=== PATIENT | male | born 1980 | race Caucasian/White ===

== ENCOUNTER 2017-02-03 17:49 | Emergency (ER) | payer BC ==
[~2017-02-03] VITALS: Ht 185.4 cm; Wt 95.3 kg
[~2017-02-03 17:49] MED LIST: 'zithromax250 MG PO; ANAPROX DS550 MG PO; CARAFATE1 G1 PO; CLINDAMYCIN HC300 MG PO; CYCLOBENZAPRINE10 MG PO; FLEXERIL10 MG PO; HYDROCODONE BIT1 T11 PO; IBU800 MG PO; LEVOFLOXACIN500 MG PO; LOMOTIL 0.025 M1 TA1 PO; MOTRIN800 MG PO; Motrin,Rufen800 MG PO; NAPROSYN500 MG PO; NKHM; NORCO 325 MG-51 TAB PO; NORCO 5-325 TA1 EACH PO; NORFLEX100 MG PO; PARAFON FORTE500 MG PO; PHENERGAN25 M1 PO; PREDNICOT20 MG PO; PREDNISONE10 MG PO; PRILOSEC20 M1 PO; PROTONIX40 MG PO; VICODIN 5/500 505 MG PO; ZITHROMAX Z PA250 MG PO; ZOFRAN ODT4 MG SL
[2017-02-03] MEDS ORDERED: CYCLOBENZAPRINE5 M3 PO (22:41)
[2017-02-03] MEDS ORDERED: ZITHROMAX250 MG PO (22:41)
[2017-02-03] MEDS ORDERED: Fioricet 325 MG1 TAB PO (22:41)
== END 2017-02-03 18:27 | disposition home or self-care (01) ==
LOC: ED 17:49
DX: H92.02 Otalgia, left ear (principal); R51 Headache; F17.200 Nicotine dependence, unspecified, uncomplicated; Z88.0 Allergy status to penicillin; Z88.1 Allergy status to other antibiotic agents

== ENCOUNTER 2017-03-09 23:17 | Emergency (ER) | payer BC ==
[~2017-03-09] VITALS: Wt 99.8 kg
[~2017-03-09 23:17] MED LIST changes: +CYCLOBENZAPRINE5 M3 PO; +Fioricet 325 MG1 TAB PO; +ZITHROMAX250 MG PO
[2017-03-09] MEDS ORDERED: OMNICEF300 MG PO (23:38)
== END 2017-03-10 00:09 | disposition home or self-care (01) ==
LOC: ED 23:17
DX: H66.006 Acute suppurative otitis media without spontaneous rupture of ear drum, recurrent, bilateral (principal); J02.9 Acute pharyngitis, unspecified; F17.200 Nicotine dependence, unspecified, uncomplicated; Z88.0 Allergy status to penicillin; Z88.1 Allergy status to other antibiotic agents

== ENCOUNTER 2017-03-28 14:53 | Emergency (ER) | payer BC ==
[~2017-03-28] VITALS: Ht 185.4 cm; Wt 100.7 kg
[~2017-03-28 14:53] MED LIST changes: +OMNICEF300 MG PO
[2017-03-28] MEDS ORDERED: NAPROSYN500 MG PO (18:57)
[2017-03-28] MEDS ORDERED: MEDROL DOSEPAK4 MG PO (18:57)
[2017-03-28] MEDS ORDERED: CYCLOBENZAPRINE10 MG PO (18:57)
== END 2017-03-28 19:04 | disposition home or self-care (01) ==
LOC: ED 14:53
DX: S29.012A Strain of muscle and tendon of back wall of thorax, initial encounter (principal); F17.200 Nicotine dependence, unspecified, uncomplicated; Z88.0 Allergy status to penicillin; Z88.1 Allergy status to other antibiotic agents; X50.9XXA Other and unspecified overexertion or strenuous movements or postures, initial encounter; Y93.89 Activity, other specified; Y92.9 Unspecified place or not applicable; Y99.9 Unspecified external cause status

== ENCOUNTER 2017-06-28 22:57 | Emergency (ER) | payer BC ==
[~2017-06-28] VITALS: Ht 185.4 cm; Wt 100.7 kg
[~2017-06-28 22:57] MED LIST changes: +MEDROL DOSEPAK4 MG PO
[2017-06-29] MEDS ORDERED: NORCO 5-325 TA1 EACH PO (01:15)
[2017-06-29] MEDS ORDERED: MEDROL DOSEPAK4 MG PO (01:15)
[2017-06-29] MEDS ORDERED: CYCLOBENZAPRINE5 M3 PO (01:15)
== END 2017-06-29 01:40 | disposition home or self-care (01) ==
LOC: ED 22:57
DX: M54.16 Radiculopathy, lumbar region (principal); F17.200 Nicotine dependence, unspecified, uncomplicated; Z88.0 Allergy status to penicillin; Z88.1 Allergy status to other antibiotic agents

== ENCOUNTER 2017-07-18 06:59 | Emergency (ER) | payer BC ==
[~2017-07-18] VITALS: Ht 185.4 cm; Wt 100.7 kg
[2017-07-18 07:41] LABS: BASO # 0.1 10*3/uL (0.0-0.1); BASO % 0.6 % (0.0-1.0); EOS # 0.6 10*3/uL (0.0-0.4); EOS % 5.2 % (1.0-4.0); HEMATOCRIT 45.5 % (42.0-52.0); HEMOGLOBIN 15.8 g/dl (14.0-18.0); LYMPH % 17.9 % (27.0-41.0); MEAN CELL VOLUME 83.5 fl (80.0-94.0); MEAN CORPUSCULAR HGB CONC 34.7 g/dl (33.0-37.0); MEAN PLATELET VOLUME 8.9 fl (9.6-12.3); MONO # 1.1 10*3/uL (0.1-1.0); MONO % 9.9 % (3.0-9.0); NEUT # 7.3 10*3/uL (2.3-7.9); NEUT % 66.1 % (47.0-73.0); PLATELET COUNT AUTOMATED 259 10*3/uL (130-400); RED BLOOD COUNT 5.45 10*6/uL (4.50-5.90); RED CELL DISTRI WIDTH 12.1 % (0-14.5)
[2017-07-18 07:42] LABS: BILIRUBIN NEGATIVE (NEGATIVE); BLOOD 1+ (NEGATIVE); CLARITY CLEAR (CLEAR); COLOR YELLOW (YELLOW); GLUCOSE NEGATIVE (NEGATIVE); KETONE NEGATIVE (NEGATIVE); LEUKO ESTERASE NEGATIVE (NEGATIVE); NITRITE NEGATIVE (NEGATIVE); PH 6.5 (5.0-9.0)
[2017-07-18 07:49] LABS: BACTERIA TRACE; WBC 0-2 wbc/hpf (0-5)
[2017-07-18 07:57] LABS: ALBUMIN 3.6 gm/dl (3.1-4.5); ALKALINE PHOSPHATASE 79 U/L (45-117); BUN 16 mg/dl (7-24); CHLORIDE 109 mmol/L (98-107); CREATININE 1.08 mg/dL (0.70-1.30); LIPASE 158 U/L (73-393); POTASSIUM 3.8 mmol/L (3.5-5.1); SGOT/AST 15 IU/L (3-35); SGPT/ALT 30 U/L (12-78); SODIUM 140 mmol/L (136-145)
[2017-07-18] MEDS ORDERED: ZOFRAN ODT4 MG SL (09:12)
[2017-07-18] MEDS ORDERED: PROTONIX40 MG PO (09:12)
== END 2017-07-18 10:54 | disposition home or self-care (01) ==
LOC: ED 06:59
PROVIDERS: Emergency Medicine
DX: K29.00 Acute gastritis without bleeding (principal); R11.2 Nausea with vomiting, unspecified; K21.9 Gastro-esophageal reflux disease without esophagitis; F17.200 Nicotine dependence, unspecified, uncomplicated; Z88.0 Allergy status to penicillin; Z88.1 Allergy status to other antibiotic agents; Z90.49 Acquired absence of other specified parts of digestive tract

== ENCOUNTER 2017-07-29 10:58 | Emergency (ER) | payer BC ==
[~2017-07-29] VITALS: Ht 185.4 cm; Wt 100.7 kg
[2017-07-29] MEDS ORDERED: CYCLOBENZAPRINE5 M3 PO (12:57)
[2017-07-29] MEDS ORDERED: Motrin,Rufen800 MG PO (12:57)
[2017-07-29] MEDS ORDERED: NORCO 5-325 TA1 EACH PO (12:57)
== END 2017-07-29 13:26 | disposition home or self-care (01) ==
LOC: ED 10:58
DX: S46.911A Strain of unspecified muscle, fascia and tendon at shoulder and upper arm level, right arm, initial encounter (principal); F17.200 Nicotine dependence, unspecified, uncomplicated; Z88.1 Allergy status to other antibiotic agents; Z88.0 Allergy status to penicillin; X58.XXXA Exposure to other specified factors, initial encounter; Y93.61 Activity, american tackle football; Y92.89 Other specified places as the place of occurrence of the external cause; Y99.8 Other external cause status

== ENCOUNTER 2017-09-13 07:34 | Emergency (ER) | payer BC ==
[~2017-09-13] VITALS: Ht 185.4 cm; Wt 97.1 kg
[2017-09-13] MEDS ORDERED: IBU800 MG PO (08:56)
== END 2017-09-13 09:17 | disposition home or self-care (01) ==
LOC: ED 07:34
DX: M25.522 Pain in left elbow (principal); F17.200 Nicotine dependence, unspecified, uncomplicated; K21.9 Gastro-esophageal reflux disease without esophagitis; Z88.0 Allergy status to penicillin; Z88.1 Allergy status to other antibiotic agents

== ENCOUNTER 2017-10-10 15:22 | Emergency (ER) | payer BC ==
[~2017-10-10] VITALS: Wt 92.5 kg
[2017-10-10] MEDS ORDERED: BENADRYL ALLERG25 M5 PO (17:00)
[2017-10-10] MEDS ORDERED: MEDROL DOSEPAK4 MG PO (17:00)
[2017-10-10] MEDS ORDERED: PEPCID20 MG PO (17:00)
== END 2017-10-10 17:12 | disposition home or self-care (01) ==
LOC: ED 15:22
DX: T78.40XA Allergy, unspecified, initial encounter (principal); X58.XXXA Exposure to other specified factors, initial encounter; F17.200 Nicotine dependence, unspecified, uncomplicated; F10.10 Alcohol abuse, uncomplicated; Z88.0 Allergy status to penicillin; Z88.1 Allergy status to other antibiotic agents; Z79.899 Other long term (current) drug therapy

== ENCOUNTER 2017-12-22 20:59 | Emergency (ER) | payer BC ==
[~2017-12-22] VITALS: Ht 185.4 cm; Wt 97.1 kg
[~2017-12-22 20:59] MED LIST changes: +BENADRYL ALLERG25 M5 PO; +PEPCID20 MG PO
[2017-12-22 22:09] LABS: BILIRUBIN 1+ (NEGATIVE); BLOOD NEGATIVE (NEGATIVE); CLARITY SL CLOUDY (CLEAR); COLOR YELLOW (YELLOW); GLUCOSE NEGATIVE (NEGATIVE); KETONE TRACE (NEGATIVE); LEUKO ESTERASE NEGATIVE (NEGATIVE); NITRITE NEGATIVE (NEGATIVE); PH 6.5 (5.0-9.0)
[2017-12-22 22:14] LABS: BASO # 0.1 10*3/uL (0.0-0.1); BASO % 0.6 % (0.0-1.0); EOS # 0.6 10*3/uL (0.0-0.4); EOS % 5.5 % (1.0-4.0); HEMATOCRIT 44.1 % (42.0-52.0); LYMPH # 3.1 10*3/uL (1.3-4.4); LYMPH % 29.8 % (27.0-41.0); MEAN CELL VOLUME 84.6 fl (80.0-94.0); MEAN CORPUSCULAR HGB 28.8 pg (27.0-31.0); MEAN PLATELET VOLUME 8.7 fl (9.6-12.3); MONO % 9.8 % (3.0-9.0); NEUT # 5.5 10*3/uL (2.3-7.9); PLATELET COUNT AUTOMATED 258 10*3/uL (130-400); RED BLOOD COUNT 5.21 10*6/uL (4.50-5.90); RED CELL DISTRI WIDTH 12.3 % (0-14.5); WHITE BLOOD COUNT 10.2 10*3/uL (4.8-10.8)
[2017-12-22 22:19] LABS: BACTERIA TRACE
[2017-12-22 22:31] LABS: ALKALINE PHOSPHATASE 63 U/L (45-117); BUN 13 mg/dl (7-24); CHLORIDE 105 mmol/L (98-107); CREATININE 1.09 mg/dL (0.70-1.30); LIPASE 92 U/L (73-393); POTASSIUM 3.9 mmol/L (3.5-5.1); SGOT/AST 15 IU/L (3-35); SGPT/ALT 27 U/L (12-78); SODIUM 140 mmol/L (136-145)
[2017-12-22 22:37] LABS: TROPONIN I < 0.015 ng/ml (<0.045)
[2017-12-22] MEDS ORDERED: ROBAXIN500 M1 PO (23:44)
[2017-12-22] MEDS ORDERED: PEPCID20 MG PO (23:44)
== END 2017-12-23 00:02 | disposition home or self-care (01) ==
LOC: ED 20:59
PROVIDERS: Physician Assistant
DX: K21.9 Gastro-esophageal reflux disease without esophagitis (principal); M54.5 Low back pain; R10.13 Epigastric pain; F17.200 Nicotine dependence, unspecified, uncomplicated; Z79.899 Other long term (current) drug therapy; Z88.0 Allergy status to penicillin; Z88.1 Allergy status to other antibiotic agents

== ENCOUNTER → 2018-01-18 | Outpatient (CLI) | payer BC ==
[~2018-01-18] MED LIST changes: +ROBAXIN500 M1 PO
== END | disposition home or self-care (01) ==
LOC: RAD 16:57
DX: G58.0 Intercostal neuropathy (principal); R06.02 Shortness of breath; R07.9 Chest pain, unspecified; Z87.891 Personal history of nicotine dependence

== ENCOUNTER 2018-03-22 15:03 | Emergency (ER) | payer BC ==
[~2018-03-22] VITALS: Ht 185.4 cm; Wt 95.3 kg
[2018-03-22] MEDS ORDERED: CYCLOBENZAPRINE10 MG PO (15:12)
== END 2018-03-22 16:58 | disposition home or self-care (01) ==
LOC: ED 15:03
DX: R51 Headache (principal); F17.200 Nicotine dependence, unspecified, uncomplicated; Z79.899 Other long term (current) drug therapy; Z88.0 Allergy status to penicillin; Z88.1 Allergy status to other antibiotic agents

== ENCOUNTER 2018-07-31 04:52 | Emergency (ER) | payer BC ==
[~2018-07-31] VITALS: Ht 185.4 cm; Wt 112.5 kg
[2018-07-31 05:30] LABS: BASO # 0.1 10*3/uL (0.0-0.1); BASO % 0.8 % (0.0-1.0); EOS # 0.9 10*3/uL (0.0-0.4); EOS % 8.8 % (1.0-4.0); MEAN CELL VOLUME 84.9 fl (80.0-94.0); MEAN CORPUSCULAR HGB CONC 34.1 g/dl (33.0-37.0); MEAN PLATELET VOLUME 8.6 fl (9.6-12.3); MONO # 1.3 10*3/uL (0.1-1.0); MONO % 12.8 % (3.0-9.0); NEUT % 58.1 % (47.0-73.0); PLATELET COUNT AUTOMATED 252 10*3/uL (130-400); RED BLOOD COUNT 5.18 10*6/uL (4.50-5.90); RED CELL DISTRI WIDTH 12.2 % (0-14.5); WHITE BLOOD COUNT 10.3 10*3/uL (4.8-10.8)
[2018-07-31] MEDS ORDERED: TOBREX OPHTH O3.5 GM T (06:34)
[2018-07-31 07:10] LABS: ALBUMIN 3.5 gm/dl (3.1-4.5); ALKALINE PHOSPHATASE 89 U/L (45-117); BUN 15 mg/dl (7-24); CHLORIDE 108 mmol/L (98-107); POTASSIUM 3.9 mmol/L (3.5-5.1); SGOT/AST 23 IU/L (3-35); SGPT/ALT 49 U/L (12-78); SODIUM 143 mmol/L (136-145); TOTAL PROTEIN 6.8 gm/dL (6.4-8.2)
[2018-07-31] MEDS ORDERED: ZITHROMAX250 MG PO (07:31)
== END 2018-07-31 07:34 | disposition home or self-care (01) ==
LOC: ED 04:52
PROVIDERS: Emergency Medicine
DX: J01.90 Acute sinusitis, unspecified (principal); K21.9 Gastro-esophageal reflux disease without esophagitis; Z88.0 Allergy status to penicillin; Z88.1 Allergy status to other antibiotic agents; Z79.899 Other long term (current) drug therapy

== ENCOUNTER 2018-12-20 09:10 | Emergency (ER) | payer BC ==
[~2018-12-20] VITALS: Ht 185.4 cm; Wt 113.4 kg
[~2018-12-20 09:10] MED LIST changes: +TOBREX OPHTH O3.5 GM T
[2018-12-20] MEDS ORDERED: DOXYCYCLINE100 M3 PO (11:06)
[2018-12-20] MEDS ORDERED: FLONASE ALLERG9.9 ML NAS (11:06)
[2018-12-20] MEDS ORDERED: PREDNISONE50 MG PO (11:06)
[2019-01-10] MEDS ORDERED: ZOFRAN4 MG PO (10:09)
[2019-01-10] MEDS ORDERED: ZITHROMAX250 MG PO (10:09)
[2019-04-01] MEDS ORDERED: MEDROL DOSEPAK4 MG PO (13:36)
[2019-04-01] MEDS ORDERED: OMNICEF300 MG PO (13:36)
[2019-04-01] MEDS ORDERED: FLONASE ALLERG9.9 ML NAS (13:36)
== END 2018-12-20 11:27 | disposition home or self-care (01) ==
LOC: ED 09:10
DX: J01.90 Acute sinusitis, unspecified (principal); Z88.0 Allergy status to penicillin; Z88.1 Allergy status to other antibiotic agents; Z79.899 Other long term (current) drug therapy

== ENCOUNTER 2019-05-17 12:37 | Emergency (ER) | payer BC ==
[~2019-05-17] VITALS: Ht 185.4 cm; Wt 104.3 kg
--- NOTE | ~2019-05-17 | EKG ---
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
[~2019-05-17 12:37] MED LIST changes: +DOXYCYCLINE100 M3 PO; +FLONASE ALLERG9.9 ML NAS; +PREDNISONE50 MG PO; +ZOFRAN4 MG PO
[2019-05-17 14:43] LABS: BASO # 0.1 10*3/uL (0.0-0.1); BASO % 0.4 % (0.0-1.0); EOS # 0.3 10*3/uL (0.0-0.4); EOS % 2.7 % (1.0-4.0); HEMATOCRIT 45.9 % (42.0-52.0); HEMOGLOBIN 15.7 g/dl (14.0-18.0); LYMPH # 2.6 10*3/uL (1.3-4.4); LYMPH % 22.8 % (27.0-41.0); MEAN CELL VOLUME 86.6 fl (80.0-94.0); MEAN CORPUSCULAR HGB 29.6 pg (27.0-31.0); MEAN CORPUSCULAR HGB CONC 34.2 g/dl (33.0-37.0); MEAN PLATELET VOLUME 9.5 fl (9.6-12.3); MONO % 8.8 % (3.0-9.0); NEUT # 7.3 10*3/uL (2.3-7.9); PLATELET COUNT AUTOMATED 266 10*3/uL (130-400); RED CELL DISTRI WIDTH 12.2 % (0-14.5); WHITE BLOOD COUNT 11.2 10*3/uL (4.8-10.8)
[2019-05-17 15:01] LABS: ALBUMIN 3.9 gm/dl (3.1-4.5); ALKALINE PHOSPHATASE 70 U/L (45-117); BUN 14 mg/dl (7-24); CHLORIDE 109 mmol/L (98-107); CREATININE 1.06 mg/dL (0.70-1.30); LIPASE 96 U/L (73-393); POTASSIUM 3.9 mmol/L (3.5-5.1); SGOT/AST 30 IU/L (3-35); SGPT/ALT 46 U/L (12-78); SODIUM 141 mmol/L (136-145); TOTAL PROTEIN 7.2 gm/dL (6.4-8.2)
[2019-05-17 15:18] LABS: TROPONIN I < 0.015 ng/ml (<0.045)
[2019-05-17] MEDS ORDERED: NEXIUM40 MG PO (16:32)
== END 2019-05-17 16:55 | disposition home or self-care (01) ==
LOC: ED 12:37
PROVIDERS: Physician Assistant
DX: K21.9 Gastro-esophageal reflux disease without esophagitis (principal); F17.200 Nicotine dependence, unspecified, uncomplicated; Z88.0 Allergy status to penicillin; Z88.1 Allergy status to other antibiotic agents

== ENCOUNTER 2019-11-20 09:57 | Emergency (ER) | payer BC ==
[~2019-11-20] VITALS: Ht 185.4 cm; Wt 108.0 kg
[~2019-11-20 09:57] MED LIST changes: +NEXIUM40 MG PO
[2019-11-20] MEDS ORDERED: ZYRTEC10 MG PO (10:56)
[2019-11-20] MEDS ORDERED: ZITHROMAX250 MG PO (10:56)
== END 2019-11-20 11:01 | disposition home or self-care (01) ==
LOC: ED 09:57
DX: J02.9 Acute pharyngitis, unspecified (principal); R05 Cough; R09.81 Nasal congestion; R51 Headache; K21.9 Gastro-esophageal reflux disease without esophagitis; Z88.0 Allergy status to penicillin; Z88.1 Allergy status to other antibiotic agents

== ENCOUNTER 2020-04-03 10:31 | Emergency (ER) | payer SELFPAY ==
[~2020-04-03 10:31] MED LIST changes: +ZYRTEC10 MG PO
[2020-04-03 11:45] LABS: BASO # 0.1 10*3/uL (0.0-0.1); BASO % 0.5 % (0.0-1.0); EOS # 0.4 10*3/uL (0.0-0.4); EOS % 2.9 % (1.0-4.0); HEMATOCRIT 47.7 % (42.0-52.0); LYMPH # 2.2 10*3/uL (1.3-4.4); LYMPH % 15.3 % (27.0-41.0); MEAN CELL VOLUME 86.1 fl (80.0-94.0); MEAN CORPUSCULAR HGB 28.7 pg (27.0-31.0); MEAN CORPUSCULAR HGB CONC 33.3 g/dl (33.0-37.0); MONO % 6.8 % (3.0-9.0); NEUT # 10.8 10*3/uL (2.3-7.9); NEUT % 74.1 % (47.0-73.0); PLATELET COUNT AUTOMATED 304 10*3/uL (130-400); RED BLOOD COUNT 5.54 10*6/uL (4.50-5.90); RED CELL DISTRI WIDTH 12.7 % (0-14.5); WHITE BLOOD COUNT 14.6 10*3/uL (4.8-10.8)
[2020-04-03 11:56] LABS: ALBUMIN 3.7 gm/dl (3.1-4.5); ALKALINE PHOSPHATASE 82 U/L (45-117); BUN 17 mg/dl (7-24); CHLORIDE 109 mmol/L (98-107); CREATININE 1.12 mg/dL (0.70-1.30); LIPASE 75 U/L (73-393); POTASSIUM 4.1 mmol/L (3.5-5.1); SGOT/AST 13 IU/L (3-35); SGPT/ALT 33 U/L (12-78); SODIUM 141 mmol/L (136-145)
[2020-04-03] MEDS ORDERED: PEPCID20 MG PO (12:23)
== END 2020-04-03 12:42 | disposition home or self-care (01) ==
LOC: ED 10:31
PROVIDERS: Physician Assistant
DX: K21.9 Gastro-esophageal reflux disease without esophagitis (principal); F32.9 Major depressive disorder, single episode, unspecified; F17.200 Nicotine dependence, unspecified, uncomplicated; Z88.0 Allergy status to penicillin; Z88.8 Allergy status to other drugs, medicaments and biological substances; Z79.899 Other long term (current) drug therapy; Z79.2 Long term (current) use of antibiotics

== ENCOUNTER 2020-04-04 12:47 | Emergency (ER) | payer SELFPAY ==
[~2020-04-04] VITALS: Ht 185.4 cm; Wt 108.9 kg
[2020-04-04 13:42] LABS: BASO # 0.1 10*3/uL (0.0-0.1); BASO % 0.7 % (0.0-1.0); EOS # 0.3 10*3/uL (0.0-0.4); EOS % 2.5 % (1.0-4.0); LYMPH # 2.5 10*3/uL (1.3-4.4); LYMPH % 19.4 % (27.0-41.0); MEAN CORPUSCULAR HGB CONC 33.8 g/dl (33.0-37.0); MONO # 0.9 10*3/uL (0.1-1.0); MONO % 6.8 % (3.0-9.0); NEUT # 9.1 10*3/uL (2.3-7.9); NEUT % 70.1 % (47.0-73.0); PLATELET COUNT AUTOMATED 295 10*3/uL (130-400); RED BLOOD COUNT 5.58 10*6/uL (4.50-5.90); RED CELL DISTRI WIDTH 12.6 % (0-14.5)
[2020-04-04 13:55] LABS: ALBUMIN 3.9 gm/dl (3.1-4.5); ALKALINE PHOSPHATASE 84 U/L (45-117); BUN 16 mg/dl (7-24); CHLORIDE 111 mmol/L (98-107); CREATININE 1.05 mg/dL (0.70-1.30); LIPASE 71 U/L (73-393); POTASSIUM 3.8 mmol/L (3.5-5.1); SGOT/AST 12 IU/L (3-35); SGPT/ALT 34 U/L (12-78); SODIUM 142 mmol/L (136-145)
[2020-04-04 14:18] LABS: BILIRUBIN NEGATIVE (NEGATIVE); CLARITY CLEAR (CLEAR); COLOR YELLOW (YELLOW); GLUCOSE NEGATIVE (NEGATIVE)
[2020-04-04 14:19] LABS: BLOOD TRACE-INTACT (NEGATIVE); KETONE NEGATIVE (NEGATIVE); NITRITE NEGATIVE (NEGATIVE); PH 7.5 (5.0-9.0); SPECIFIC GRAVITY 1.015 (1.005-1.030); UROBILINOGEN 0.2 E.U./dl (0.2-1.0)
[2020-04-04 14:24] LABS: LEUKO ESTERASE NEGATIVE (NEGATIVE)
[2020-04-04 14:26] LABS: BACTERIA TRACE; EPITHELIAL CELLS 0-2; MUCOUS TRACE; WBC 0-2 wbc/hpf (0-5)
== END 2020-04-04 15:20 | disposition home or self-care (01) ==
LOC: ED 12:47
PROVIDERS: Physician Assistant
DX: R10.13 Epigastric pain (principal); K21.9 Gastro-esophageal reflux disease without esophagitis; Z88.0 Allergy status to penicillin; Z88.8 Allergy status to other drugs, medicaments and biological substances; Z79.899 Other long term (current) drug therapy

== ENCOUNTER 2020-06-20 11:06 | Emergency (ER) | payer BC ==
[~2020-06-20] VITALS: Ht 185.4 cm; Wt 108.9 kg
== END 2020-06-20 14:21 | disposition left against medical advice (07) ==
LOC: ED 11:06
DX: M54.9 Dorsalgia, unspecified (principal); M25.512 Pain in left shoulder; F17.200 Nicotine dependence, unspecified, uncomplicated; Z88.0 Allergy status to penicillin; Z88.1 Allergy status to other antibiotic agents; Z53.21 Procedure and treatment not carried out due to patient leaving prior to being seen by health care provider

== ENCOUNTER 2020-07-02 10:37 | Emergency (ER) | payer BC ==
[~2020-07-02] VITALS: Ht 185.4 cm; Wt 108.9 kg
[2020-07-02 11:24] LABS: BASO # 0.1 10*3/uL (0.0-0.1); BASO % 0.7 % (0.0-1.0); EOS # 0.5 10*3/uL (0.0-0.4); EOS % 3.4 % (1.0-4.0); HEMATOCRIT 47.6 % (42.0-52.0); LYMPH # 2.3 10*3/uL (1.3-4.4); MEAN CELL VOLUME 84.4 fl (80.0-94.0); MEAN CORPUSCULAR HGB 28.5 pg (27.0-31.0); MEAN CORPUSCULAR HGB CONC 33.8 g/dl (33.0-37.0); MEAN PLATELET VOLUME 8.6 fl (9.6-12.3); MONO # 0.9 10*3/uL (0.1-1.0); MONO % 6.3 % (3.0-9.0); NEUT # 10.7 10*3/uL (2.3-7.9); NEUT % 73.2 % (47.0-73.0); PLATELET COUNT AUTOMATED 287 10*3/uL (130-400); RED BLOOD COUNT 5.64 10*6/uL (4.50-5.90); WHITE BLOOD COUNT 14.6 10*3/uL (4.8-10.8)
[2020-07-02 11:40] LABS: ALKALINE PHOSPHATASE 85 U/L (45-117); BUN 14 mg/dl (7-24); CHLORIDE 107 mmol/L (98-107); CREATININE 1.08 mg/dL (0.70-1.30); LIPASE 96 U/L (73-393); SGOT/AST 18 IU/L (3-35); SGPT/ALT 41 U/L (12-78); SODIUM 138 mmol/L (136-145); TOTAL PROTEIN 7.4 gm/dL (6.4-8.2)
[2020-07-02 12:03] LABS: BILIRUBIN NEGATIVE; BLOOD 1+ (NEGATIVE); CLARITY CLEAR (CLEAR); COLOR YELLOW (YELLOW); GLUCOSE NEGATIVE; KETONE 1+; LEUKO ESTERASE NEGATIVE (NEGATIVE); NITRITE NEGATIVE (NEGATIVE); UROBILINOGEN 0.2 E.U./dl (0.0-1.0)
[2020-07-02 12:04] LABS: MUCOUS TRACE
[2020-07-02] MEDS ORDERED: NORCO 5-325 TA1 EACH PO (14:00)
[2020-07-02] MEDS ORDERED: EC NAPROSYN,NA500 MG PO (14:00)
== END 2020-07-02 14:10 | disposition home or self-care (01) ==
LOC: ED 10:37
PROVIDERS: Emergency Medicine
DX: N50.812 Left testicular pain (principal); N50.811 Right testicular pain; Z88.0 Allergy status to penicillin; Z88.1 Allergy status to other antibiotic agents; Z79.899 Other long term (current) drug therapy

== ENCOUNTER → 2020-07-21 | Outpatient (CLI) | payer BC ==
[~2020-07-21] MED LIST changes: +EC NAPROSYN,NA500 MG PO
== END | disposition home or self-care (01) ==
LOC: US 12:49
PROVIDERS: ATTEND Urology
DX: N28.89 Other specified disorders of kidney and ureter (principal); R10.9 Unspecified abdominal pain

== ENCOUNTER → 2020-08-12 | Outpatient (CLI) | payer BC | END | disposition home or self-care (01) | LOC: CT 08-08 11:00 | PROVIDERS: ATTEND Urology | DX: K76.89 Other specified diseases of liver (principal); N43.3 Hydrocele, unspecified; Z98.890 Other specified postprocedural states; Z90.49 Acquired absence of other specified parts of digestive tract ==

== ENCOUNTER → 2020-08-14 | Outpatient (CLI) | payer BC ==
[2020-08-14 16:50] LABS: BILIRUBIN Negative (Negative); BLOOD 1+ (Negative); CLARITY Clear (Clear); COLOR Dark Yellow (Yellow); GLUCOSE Negative (Negative); KETONE Trace (Negative); LEUKO ESTERASE Negative (Negative); NITRITE Negative (Negative); SPECIFIC GRAVITY >= 1.030 (1.001-1.030)
[2020-08-14 18:01] LABS: BACTERIA 1+
== END | disposition home or self-care (01) ==
LOC: LAB 16:26
PROVIDERS: ATTEND Urology
DX: R31.9 Hematuria, unspecified (principal)

== ENCOUNTER 2020-09-25 10:50 | Emergency (ER) | payer BC ==
[~2020-09-25] VITALS: Wt 108.9 kg
== END 2020-09-25 12:06 | disposition left against medical advice (07) ==
LOC: ED 10:50
DX: S49.92XA Unspecified injury of left shoulder and upper arm, initial encounter (principal); Z53.21 Procedure and treatment not carried out due to patient leaving prior to being seen by health care provider; X58.XXXA Exposure to other specified factors, initial encounter; Y93.89 Activity, other specified; Y92.89 Other specified places as the place of occurrence of the external cause; Y99.8 Other external cause status

== ENCOUNTER → 2020-09-26 | Outpatient (CLI) | payer BC | END | disposition home or self-care (01) | LOC: US 09-23 11:30 | PROVIDERS: ATTEND Urology | DX: N50.819 Testicular pain, unspecified (principal); R31.9 Hematuria, unspecified ==

== ENCOUNTER 2021-03-17 10:56 | Emergency (ER) | payer SELFPAY ==
[~2021-03-17] VITALS: Ht 185.4 cm; Wt 103.4 kg
[2021-03-17 13:19] LABS: BASO # 0.1 10*3/uL (0.0-0.1); BASO % 0.9 % (0.0-1.0); EOS # 0.8 10*3/uL (0.0-0.4); EOS % 6.9 % (1.0-4.0); HEMATOCRIT 46.7 % (42.0-52.0); LYMPH # 2.3 10*3/uL (1.3-4.4); LYMPH % 20.1 % (27.0-41.0); MEAN CELL VOLUME 84.8 fl (80.0-94.0); MEAN CORPUSCULAR HGB 28.5 pg (27.0-31.0); MEAN CORPUSCULAR HGB CONC 33.6 g/dl (33.0-37.0); MEAN PLATELET VOLUME 8.2 fl (9.6-12.3); MONO % 8.9 % (3.0-9.0); NEUT # 7.2 10*3/uL (2.3-7.9); NEUT % 62.8 % (47.0-73.0); PLATELET COUNT AUTOMATED 302 10*3/uL (130-400); RED BLOOD COUNT 5.51 10*6/uL (4.50-5.90); RED CELL DISTRI WIDTH 12.3 % (0-14.5); WHITE BLOOD COUNT 11.4 10*3/uL (4.8-10.8)
[2021-03-17 13:41] LABS: ALBUMIN 3.8 gm/dl (3.1-4.5); ALKALINE PHOSPHATASE 74 U/L (45-117); BUN 15 mg/dl (7-24); CHLORIDE 108 mmol/L (98-107); CREATININE 1.11 mg/dL (0.70-1.30); LIPASE 65 U/L (73-393); POTASSIUM 4.1 mmol/L (3.5-5.1); SGOT/AST 12 IU/L (3-35); SGPT/ALT 26 U/L (12-78); SODIUM 140 mmol/L (136-145); TOTAL PROTEIN 6.9 gm/dL (6.4-8.2)
[2021-03-17] MEDS ORDERED: PROTONIX40 MG PO (14:24)
== END 2021-03-17 14:32 | disposition home or self-care (01) ==
LOC: ED 10:56
PROVIDERS: Emergency Medicine
DX: K29.00 Acute gastritis without bleeding (principal); Z88.0 Allergy status to penicillin; Z88.8 Allergy status to other drugs, medicaments and biological substances; Z79.899 Other long term (current) drug therapy

== ENCOUNTER 2021-06-09 10:09 | Emergency (ER) | payer BC ==
[2021-06-09 11:21] LABS: BASO # 0.1 10*3/uL (0.0-0.1); BASO % 0.8 % (0.0-1.0); EOS # 0.6 10*3/uL (0.0-0.4); EOS % 4.9 % (1.0-4.0); HEMATOCRIT 49.1 % (42.0-52.0); LYMPH # 1.7 10*3/uL (1.3-4.4); LYMPH % 12.8 % (27.0-41.0); MEAN CELL VOLUME 85.5 fl (80.0-94.0); MEAN CORPUSCULAR HGB 28.9 pg (27.0-31.0); MEAN CORPUSCULAR HGB CONC 33.8 g/dl (33.0-37.0); MEAN PLATELET VOLUME 8.6 fl (9.6-12.3); MONO # 1.1 10*3/uL (0.1-1.0); NEUT # 9.6 10*3/uL (2.3-7.9); NEUT % 73.1 % (47.0-73.0); PLATELET COUNT AUTOMATED 294 10*3/uL (130-400); RED BLOOD COUNT 5.74 10*6/uL (4.50-5.90); RED CELL DISTRI WIDTH 12.3 % (0-14.5); WHITE BLOOD COUNT 13.1 10*3/uL (4.8-10.8)
[2021-06-09 11:37] LABS: ALBUMIN 4.1 gm/dl (3.1-4.5); ALKALINE PHOSPHATASE 88 U/L (45-117); BUN 13 mg/dl (7-24); CHLORIDE 108 mmol/L (98-107); CREATININE 1.07 mg/dL (0.70-1.30); LIPASE 53 U/L (73-393); POTASSIUM 4.1 mmol/L (3.5-5.1); SGOT/AST 17 IU/L (3-35); SGPT/ALT 35 U/L (12-78); SODIUM 138 mmol/L (136-145); TOTAL PROTEIN 7.2 gm/dL (6.4-8.2)
[2021-06-09] MEDS ORDERED: PEPCID20 MG PO (12:24)
[2021-06-09] MEDS ORDERED: CYCLOBENZAPRINE10 MG PO (12:24)
== END 2021-06-09 12:35 | disposition home or self-care (01) ==
LOC: ED 10:09
PROVIDERS: Emergency Medicine
DX: S29.012A Strain of muscle and tendon of back wall of thorax, initial encounter (principal); K29.00 Acute gastritis without bleeding; K21.9 Gastro-esophageal reflux disease without esophagitis; Z88.0 Allergy status to penicillin; Z88.1 Allergy status to other antibiotic agents; Z79.899 Other long term (current) drug therapy; X58.XXXA Exposure to other specified factors, initial encounter; Y93.89 Activity, other specified; Y92.89 Other specified places as the place of occurrence of the external cause; Y99.8 Other external cause status

== ENCOUNTER 2021-09-02 10:39 | Emergency (ER) | payer BC ==
[2021-09-02 11:20] LABS: BASO # 0.1 10*3/uL (0.0-0.1); BASO % 0.6 % (0.0-1.0); EOS # 0.4 10*3/uL (0.0-0.4); EOS % 2.3 % (1.0-4.0); HEMATOCRIT 49.5 % (42.0-52.0); LYMPH # 2.2 10*3/uL (1.3-4.4); LYMPH % 14.1 % (27.0-41.0); MEAN CELL VOLUME 85.6 fl (80.0-94.0); MEAN CORPUSCULAR HGB 28.7 pg (27.0-31.0); MEAN CORPUSCULAR HGB CONC 33.5 g/dl (33.0-37.0); MEAN PLATELET VOLUME 8.3 fl (9.6-12.3); MONO # 1.1 10*3/uL (0.1-1.0); MONO % 6.7 % (3.0-9.0); NEUT # 11.9 10*3/uL (2.3-7.9); NEUT % 75.9 % (47.0-73.0); PLATELET COUNT AUTOMATED 298 10*3/uL (130-400); RED BLOOD COUNT 5.78 10*6/uL (4.50-5.90); RED CELL DISTRI WIDTH 12.3 % (0-14.5); WHITE BLOOD COUNT 15.7 10*3/uL (4.8-10.8)
[2021-09-02 11:37] LABS: ALBUMIN 4.3 gm/dl (3.1-4.5); ALKALINE PHOSPHATASE 84 U/L (45-117); BUN 14 mg/dl (7-24); CHLORIDE 104 mmol/L (98-107); CREATININE 1.13 mg/dL (0.70-1.30); LIPASE 76 U/L (73-393); POTASSIUM 3.9 mmol/L (3.5-5.1); SGOT/AST 23 IU/L (3-35); SGPT/ALT 39 U/L (12-78); SODIUM 137 mmol/L (136-145); TOTAL PROTEIN 7.9 gm/dL (6.4-8.2)
[2021-09-02 11:39] LABS: BILIRUBIN Negative (Negative); BLOOD Trace-Lysed (Negative); CLARITY Clear (Clear); COLOR Yellow (Yellow); GLUCOSE Negative (Negative); KETONE 1+ (Negative); LEUKO ESTERASE Negative (Negative); NITRITE Negative (Negative); PH 5.5 (4.5-8.0); SPECIFIC GRAVITY 1.025 (1.001-1.030)
[2021-09-02 11:51] LABS: MUCOUS TRACE; RBC 0-2 rbc/hpf (0-2); WBC 0-2 wbc/hpf (0-5)
== END 2021-09-02 12:16 | disposition home or self-care (01) ==
LOC: ED 10:39
PROVIDERS: Emergency Medicine
DX: R10.13 Epigastric pain (principal); K21.9 Gastro-esophageal reflux disease without esophagitis; F17.200 Nicotine dependence, unspecified, uncomplicated; Z88.0 Allergy status to penicillin; Z88.1 Allergy status to other antibiotic agents

== ENCOUNTER 2021-12-11 08:16 | Emergency (ER) | payer OTHER, BC ==
[~2021-12-11] VITALS: Ht 185.4 cm; Wt 96.6 kg
[2021-12-11] MEDS ORDERED: NAPROXEN250 MG PO (09:52)
[2021-12-11] MEDS ORDERED: TYLENOL325 M1 PO (09:52)
[2021-12-11] MEDS ORDERED: VOLTAREN ARTHRI20 GM T (09:52)
[2021-12-11] MEDS ORDERED: CYCLOBENZAPRINE10 MG PO (09:52)
== END 2021-12-11 10:08 | disposition home or self-care (01) ==
LOC: ED 08:16
DX: S13.4XXA Sprain of ligaments of cervical spine, initial encounter (principal); M54.9 Dorsalgia, unspecified; R10.9 Unspecified abdominal pain; K21.9 Gastro-esophageal reflux disease without esophagitis; Z88.0 Allergy status to penicillin; Z88.1 Allergy status to other antibiotic agents; Z98.890 Other specified postprocedural states; V47.5XXA Car driver injured in collision with fixed or stationary object in traffic accident, initial encounter; Y93.89 Activity, other specified; Y92.89 Other specified places as the place of occurrence of the external cause; Y99.8 Other external cause status

== ENCOUNTER 2022-01-13 11:52 | Emergency (ER) | payer BC ==
[~2022-01-13] VITALS: Wt 99.8 kg
[~2022-01-13 11:52] MED LIST changes: +NAPROXEN250 MG PO; +TYLENOL325 M1 PO; +VOLTAREN ARTHRI20 GM T
[2022-01-13] MEDS ORDERED: IBUPROFEN600 MG PO (13:52)
== END 2022-01-13 13:57 | disposition home or self-care (01) ==
LOC: ED 11:52
DX: S43.401A Unspecified sprain of right shoulder joint, initial encounter (principal); Z88.0 Allergy status to penicillin; Z88.1 Allergy status to other antibiotic agents; Z79.899 Other long term (current) drug therapy; X50.9XXA Other and unspecified overexertion or strenuous movements or postures, initial encounter; Y93.89 Activity, other specified; Y92.89 Other specified places as the place of occurrence of the external cause; Y99.8 Other external cause status

== ENCOUNTER 2022-02-17 06:58 | Emergency (ER) | payer BC ==
[~2022-02-17] VITALS: Wt 99.3 kg
[~2022-02-17 06:58] MED LIST changes: +IBUPROFEN600 MG PO
[2022-02-17] MEDS ORDERED: CARAFATE1 G1 PO (07:51)
== END 2022-02-17 09:17 | disposition home or self-care (01) ==
LOC: ED 06:58
DX: K21.9 Gastro-esophageal reflux disease without esophagitis (principal); Z88.0 Allergy status to penicillin; Z88.1 Allergy status to other antibiotic agents

== ENCOUNTER 2022-06-14 10:27 | Emergency (ER) | payer BC ==
[~2022-06-14] VITALS: Ht 185.4 cm; Wt 99.3 kg
[2022-06-14] MEDS ORDERED: PROTONIX20 MG PO (10:47)
== END 2022-06-14 12:10 | disposition home or self-care (01) ==
LOC: ED 10:27
DX: R10.13 Epigastric pain (principal); K21.9 Gastro-esophageal reflux disease without esophagitis; Z79.899 Other long term (current) drug therapy; Z88.0 Allergy status to penicillin; Z88.1 Allergy status to other antibiotic agents

== ENCOUNTER 2022-08-24 10:30 | Emergency (ER) | payer BC ==
[~2022-08-24] VITALS: Ht 185.4 cm; Wt 122.9 kg
[~2022-08-24 10:30] MED LIST changes: +PROTONIX20 MG PO
[2022-08-24] MEDS ORDERED: OMEPRAZOLE40 MG PO (11:57)
== END 2022-08-24 12:00 | disposition home or self-care (01) ==
LOC: ED 10:30
DX: K21.9 Gastro-esophageal reflux disease without esophagitis (principal); K29.70 Gastritis, unspecified, without bleeding; Z88.0 Allergy status to penicillin; Z88.1 Allergy status to other antibiotic agents; Z79.899 Other long term (current) drug therapy

== ENCOUNTER 2022-10-15 07:27 | Emergency (ER) | payer BC ==
[~2022-10-15] VITALS: Ht 185.4 cm; Wt 97.5 kg
[~2022-10-15 07:27] MED LIST changes: +OMEPRAZOLE40 MG PO
[2022-10-15] MEDS ORDERED: RELAFEN500 M1 PO (07:49)
== END 2022-10-15 07:58 | disposition home or self-care (01) ==
LOC: ED 07:27
DX: M54.50 Low back pain, unspecified (principal); Z88.0 Allergy status to penicillin; Z88.1 Allergy status to other antibiotic agents; Z79.899 Other long term (current) drug therapy

== ENCOUNTER 2023-03-03 10:12 | Emergency (ER) | payer SELFPAY ==
[~2023-03-03] VITALS: Ht 185.4 cm; Wt 90.7 kg
[~2023-03-03 10:12] MED LIST changes: +RELAFEN500 M1 PO
[2023-03-03 10:58] LABS: BASO # 0.1 10*3/uL (0.0-0.1); BASO % 0.8 % (0.0-1.0); EOS # 0.7 10*3/uL (0.0-0.4); EOS % 7.2 % (1.0-4.0); HEMATOCRIT 49.5 % (42.0-52.0); LYMPH # 1.7 10*3/uL (1.3-4.4); LYMPH % 17.4 % (27.0-41.0); MEAN CELL VOLUME 85.9 fl (80.0-94.0); MEAN CORPUSCULAR HGB 28.5 pg (27.0-31.0); MEAN CORPUSCULAR HGB CONC 33.1 g/dl (33.0-37.0); MEAN PLATELET VOLUME 8.5 fl (9.6-12.3); MONO # 1.1 10*3/uL (0.1-1.0); MONO % 11.1 % (3.0-9.0); NEUT # 6.3 10*3/uL (2.3-7.9); NEUT % 63.3 % (47.0-73.0); PLATELET COUNT AUTOMATED 283 10*3/uL (130-400); RED BLOOD COUNT 5.76 10*6/uL (4.50-5.90); RED CELL DISTRI WIDTH 12.6 % (0-14.5)
[2023-03-03 11:23] LABS: ALKALINE PHOSPHATASE 68 U/L (46-116); BUN 14 mg/dl (9-23); CHLORIDE 108 mmol/L (98-107); LIPASE 30 U/L (12-53); POTASSIUM 4.2 mmol/L (3.4-5.1); SGPT/ALT 11 U/L (10-49); TOTAL PROTEIN 5.8 gm/dL (6.0-8.0)
[2023-03-03] MEDS ORDERED: ONDANSETRON4 MG SL (11:30)
== END 2023-03-03 11:48 | disposition home or self-care (01) ==
LOC: ED 10:12
PROVIDERS: Emergency Medicine
DX: R11.2 Nausea with vomiting, unspecified (principal); K21.9 Gastro-esophageal reflux disease without esophagitis; Z88.0 Allergy status to penicillin; Z88.1 Allergy status to other antibiotic agents

== ENCOUNTER 2023-05-31 09:30 | Emergency (ER) | payer SELFPAY ==
[~2023-05-31] VITALS: Wt 91.2 kg
[~2023-05-31 09:30] MED LIST changes: +KETOROLAC10 MG PO; +ONDANSETRON4 MG SL
[2023-05-31 10:08] LABS: BASO # 0.1 10*3/uL (0.0-0.1); BASO % 0.9 % (0.0-1.0); EOS # 0.6 10*3/uL (0.0-0.4); EOS % 7.1 % (1.0-4.0); HEMATOCRIT 48.7 % (42.0-52.0); LYMPH # 1.7 10*3/uL (1.3-4.4); LYMPH % 21.6 % (27.0-41.0); MEAN CELL VOLUME 85.6 fl (80.0-94.0); MEAN CORPUSCULAR HGB CONC 33.9 g/dl (33.0-37.0); MEAN PLATELET VOLUME 8.4 fl (9.6-12.3); NEUT # 4.4 10*3/uL (2.3-7.9); NEUT % 57.1 % (47.0-73.0); PLATELET COUNT AUTOMATED 258 10*3/uL (130-400); RED BLOOD COUNT 5.69 10*6/uL (4.50-5.90); RED CELL DISTRI WIDTH 12.4 % (0-14.5); WHITE BLOOD COUNT 7.8 10*3/uL (4.8-10.8)
[2023-05-31 10:20] LABS: ACT PARTIAL THROMBO TIME 28.8 SECONDS (20.0-32.1)
[2023-05-31 10:29] LABS: ALKALINE PHOSPHATASE 60 U/L (46-116); BUN 10 mg/dl (9-23); CHLORIDE 106 mmol/L (98-107); LIPASE 30 U/L (12-53); POTASSIUM 4.3 mmol/L (3.4-5.1); SGPT/ALT 17 U/L (10-49); TOTAL PROTEIN 5.9 gm/dL (6.0-8.0)
[2023-05-31] MEDS ORDERED: ONDANSETRON4 MG SL (14:12)
== END 2023-05-31 14:29 | disposition home or self-care (01) ==
LOC: ED 09:30
PROVIDERS: Emergency Medicine
DX: K21.9 Gastro-esophageal reflux disease without esophagitis (principal); R11.2 Nausea with vomiting, unspecified; F32.A Depression, unspecified; Z88.0 Allergy status to penicillin; Z88.8 Allergy status to other drugs, medicaments and biological substances; Z98.890 Other specified postprocedural states

== ENCOUNTER 2023-08-25 09:30 | Emergency (ER) | payer SELFPAY ==
[~2023-08-25] VITALS: Wt 89.8 kg
[2023-08-25] MEDS ORDERED: PEPCID20 MG PO (11:36)
== END 2023-08-25 11:39 | disposition home or self-care (01) ==
LOC: ED 09:30
DX: K21.9 Gastro-esophageal reflux disease without esophagitis (principal); F32.A Depression, unspecified; Z88.0 Allergy status to penicillin; Z88.8 Allergy status to other drugs, medicaments and biological substances; Z98.890 Other specified postprocedural states

== ENCOUNTER 2023-12-27 08:24 | Emergency (ER) | payer SELFPAY ==
[~2023-12-27] VITALS: Ht 185.4 cm; Wt 93.0 kg
[2023-12-27] MEDS ORDERED: AZITHROMYCIN 250 MG TAB PO ONE (08:40)
[2023-12-27] MEDS ORDERED: NEO/POLYMYX B SULF/DEXAMETH 200 DRP BOT OT ONE (08:40)
[2023-12-27] MEDS ORDERED: ZITHROMAX250 MG PO (08:41)
== END 2023-12-27 09:02 | disposition home or self-care (01) ==
LOC: ED 08:24
DX: H60.91 Unspecified otitis externa, right ear (principal); K21.9 Gastro-esophageal reflux disease without esophagitis; F32.A Depression, unspecified; Z88.0 Allergy status to penicillin; Z88.8 Allergy status to other drugs, medicaments and biological substances; Z98.890 Other specified postprocedural states

== ENCOUNTER 2024-08-18 13:27 | Emergency (ER) | payer BC ==
[~2024-08-18] VITALS: Ht 185.4 cm; Wt 88.0 kg
[2024-08-18] MEDS ORDERED: AVPAK AZITHROM250 MG PO (14:08)
== END 2024-08-18 14:11 | disposition home or self-care (01) ==
LOC: ED 13:27
DX: H66.92 Otitis media, unspecified, left ear (principal); K21.9 Gastro-esophageal reflux disease without esophagitis; F32.A Depression, unspecified; Z88.1 Allergy status to other antibiotic agents; Z98.890 Other specified postprocedural states

== ENCOUNTER 2024-09-17 11:43 | Emergency (ER) | payer BC ==
[~2024-09-17] VITALS: Wt 88.9 kg
[~2024-09-17 11:43] MED LIST changes: +AVPAK AZITHROM250 MG PO
[2024-09-17] MEDS ORDERED: Lidocaine Hydrochloride 15 ML UDC PO STA (12:00)
[2024-09-17] MEDS ORDERED: MG-AL HYDROXIDE/SIMETICONE 30 ML UDC PO STA (12:00)
[2024-09-17] MEDS ORDERED: Dicyclomine Hydrochloride 20 MG/10 ML OSYR PO STA (12:00)
== END 2024-09-17 13:13 | disposition home or self-care (01) ==
LOC: ED 11:43
DX: K21.9 Gastro-esophageal reflux disease without esophagitis (principal); F32.A Depression, unspecified; Z88.0 Allergy status to penicillin; Z88.1 Allergy status to other antibiotic agents; Z98.890 Other specified postprocedural states

== ENCOUNTER 2025-04-25 07:59 | Emergency (ER) | payer BC ==
[~2025-04-25] VITALS: Ht 185.4 cm; Wt 86.6 kg
[2025-04-25] MEDS ORDERED: Acetaminophen/Oxycodone 5 MG/325 MG TABLET PO ONE (08:15)
[2025-04-25] MEDS ORDERED: Doxycycline Hyclate 100 MG CAPSULE PO ONE (08:15)
[2025-04-25] MEDS ORDERED: CLINDAMYCIN HCL 300 MG CAPSULE PO ONE (08:20)
[2025-04-25] MEDS ORDERED: CLINDAMYCIN HC300 MG PO (08:21)
[2025-04-25] MEDS ORDERED: MELOXICAM15 MG PO (08:21)
== END 2025-04-25 08:26 | disposition home or self-care (01) ==
LOC: ED 07:59
DX: K04.7 Periapical abscess without sinus (principal); K02.9 Dental caries, unspecified; K21.9 Gastro-esophageal reflux disease without esophagitis; F17.290 Nicotine dependence, other tobacco product, uncomplicated; Z88.0 Allergy status to penicillin; Z88.1 Allergy status to other antibiotic agents

== ENCOUNTER 2025-04-29 09:30 | Emergency (ER) | payer BC ==
[~2025-04-29] VITALS: Ht 185.4 cm; Wt 87.5 kg
[~2025-04-29 09:30] MED LIST changes: +MELOXICAM15 MG PO
[2025-04-29] MEDS ORDERED: PREDNISONE20 M1 PO (10:24)
[2025-04-29] MEDS ORDERED: METHOCARBAMOL750 M1 PO (10:24)
[2025-04-29] MEDS ORDERED: PEPCID20 MG PO (10:24)
[2025-04-29] MEDS ORDERED: HYDROXYZINE HCL25 MG PO (10:24)
[2025-04-29] MEDS ORDERED: Dexamethasone Sodium Phospha 20 MG/5 ML VIAL IM ONE (10:25)
== END 2025-04-29 11:41 | disposition home or self-care (01) ==
LOC: ED 09:30
DX: R21 Rash and other nonspecific skin eruption (principal); T37.95XA Adverse effect of unspecified systemic anti-infective and antiparasitic, initial encounter; S29.011A Strain of muscle and tendon of front wall of thorax, initial encounter; X58.XXXA Exposure to other specified factors, initial encounter; Y93.89 Activity, other specified; Y99.8 Other external cause status